=== PATIENT | male | born 1960 ===

== ENCOUNTER 2024-12-10 15:37 | Emergency (ER) | payer OTHER ==
[2024-12-10] MEDS: Ibuprofen 600 MG Tab PO ONE (16:23)
== END 2024-12-10 17:27 | disposition home or self-care (01) ==
LOC: JP.ED 15:37
DX: S20.212A Contusion of left front wall of thorax, initial encounter (principal); S49.91XA Unspecified injury of right shoulder and upper arm, initial encounter; F17.200 Nicotine dependence, unspecified, uncomplicated; Z88.0 Allergy status to penicillin; Z79.890 Hormone replacement therapy; Y04.0XXA Assault by unarmed brawl or fight, initial encounter
CPT/HCPCS: 71046; 73030; 99284; A9270